=== PATIENT | female | born 1995 | race Two or more races ===

== ENCOUNTER 2019-01-20 06:59 | Emergency (ER) | payer MEDICAID ==
[~2019-01-20] VITALS: Ht 172.7 cm; Wt 70.8 kg
[2019-01-20] MEDS ORDERED: METOCLOPRAMIDE HCL 10 MG/2 ML VIAL ONE (07:41)
[2019-01-20 07:44] LABS: BASOPHILS % (AUTO) 0.2 % (0.0-2.0); EOSINOPHILS % (AUTO) 0.4 % (0.0-7.0); HEMATOCRIT 41.7 % (31.2-41.9); HEMOGLOBIN 14.1 g/dL (10.9-14.3); LYMPHOCYTES # (AUTO) 1.3 K/uL (20.0-40.0); MEAN CORPUSCULAR HEMOGLOBIN 29.7 uug (24.7-32.8); MEAN CORPUSCULAR HGB CONC 34 g/dL (32.3-35.6); MEAN CORPUSCULAR VOLUME 87.9 fL (75.5-95.3); MONOCYTES # (AUTO) 0.4 K/uL (2.0-10.0); MONOCYTES % (AUTO) 7.1 % (0.0-11.0); NEUTROPHILS # (AUTO) 3.8 K/uL (1.8-8.9); NEUTROPHILS % (AUTO) 69.3 % (38.5-71.5); PLATELET COUNT (AUTO) 193 K/uL (179-408); RED BLOOD CELL COUNT(AUTO) 4.75 MIL/uL (3.63-4.92); WHITE BLOOD COUNT (AUTO) 5.5 K/uL (3.8-11.8)
[2019-01-20 07:45] LABS: CARBON DIOXIDE 22 mmol/L (21-32); CHLORIDE 104 mmol/L (98-107); CREATININE 0.9 mg/dL (0.6-1.3); GLUCOSE 98 mg/dL (74-106); POTASSIUM 3.6 mmol/L (3.5-5.1); UREA NITROGEN, BLOOD 20 mg/dL (7-18)
[2019-01-20] MEDS ORDERED: IV NORMAL SALINE 1000 ML BAG IV ONE (07:45)
[2019-01-20] MEDS ORDERED: METOCLOPRAMIDE HCL 10 MG/2 ML VIAL IV ONE (07:45)
[2019-01-20 07:51] LABS: ALANINE AMINOTRANSFERASE 29 U/L (14-59); ALKALINE PHOSPHATASE 84 U/L (50-136); ASPARTATE AMINOTRANSFERASE 21 U/L (15-37); BILIRUBIN,DIRECT 0.2 mg/dL (0.0-0.2); BILIRUBIN,TOTAL 0.6 mg/dL (0.2-1.0); LIPASE 108 U/L (73-393); TOTAL PROTEIN, SERUM 8.1 g/dL (6.4-8.2)
--- NOTE | 2019-01-20 08:09 | NUR ---
Pt resting with NAD noted.
--- NOTE | 2019-01-20 09:55 | NUR ---
Patient discharged to home in stable conditon. Written and verbal after care instructions given. Patient verbalizes understanding of instructions.
--- NOTE | 2019-01-20 09:55 | NUR ---
IV removed. Catheter intact and site benign. Pressure and 4x4 gauze applied to site. No bleeding noted.
[2019-01-20 09:58] VITALS: BP 114/77
== END 2019-01-20 09:58 | disposition home or self-care (01) ==
LOC: ER 07:01
DX: E86.0 Dehydration (principal); F17.200 Nicotine dependence, unspecified, uncomplicated; F12.10 Cannabis abuse, uncomplicated; Z88.1 Allergy status to other antibiotic agents; Z88.8 Allergy status to other drugs, medicaments and biological substances
CPT/HCPCS: 36415; 80048; 80076; 83690; 84702; 85025; 96374; 99283; J2765; A4663; J7030

== ENCOUNTER 2019-01-30 22:40 | Emergency (ER) | payer MEDICAID ==
[~2019-01-30] VITALS: Ht 172.7 cm; Wt 70.8 kg
[2019-01-30] MEDS ORDERED: CEPH-570 PO (22:58)
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
--- NOTE | 2019-01-31 00:13 | NUR ---
Patient discharged to home in stable conditon. Written and verbal after care instructions given. Patient verbalizes understanding of instructions. WALKED OUT OF ER WITH NO DISTRESS NOTED
[2019-01-31 00:15] VITALS: BP 110/70
== END 2019-01-31 00:17 | disposition home or self-care (01) ==
LOC: ER 22:40
DX: S16.1XXA Strain of muscle, fascia and tendon at neck level, initial encounter (principal); F17.200 Nicotine dependence, unspecified, uncomplicated; F12.10 Cannabis abuse, uncomplicated; Z88.8 Allergy status to other drugs, medicaments and biological substances; Z79.899 Other long term (current) drug therapy; Z88.1 Allergy status to other antibiotic agents; V43.52XA Car driver injured in collision with other type car in traffic accident, initial encounter; Y93.89 Activity, other specified; Y92.89 Other specified places as the place of occurrence of the external cause; Y99.8 Other external cause status
CPT/HCPCS: 73020; 73130; A4663